=== PATIENT | male | born 1990 | race African-American/Black ===

== ENCOUNTER 2017-08-05 19:54 | Emergency (ER) | payer OTHER ==
[~2017-08-05] VITALS: Ht 180.3 cm; Wt 118.0 kg
[2017-08-05 19:57] VITALS: BP 144/181; PULSE 87; RESP 20; TEMP 97.9; O2SAT 100
[2017-08-05 21:28] VITALS: BP 145/79; PULSE 64; RESP 18; O2SAT 98
[2017-08-05] MEDS ORDERED: BENZ100 PO (21:30)
[2017-08-05] MEDS ORDERED: AZIT250T3 PO (21:30)
[2017-08-05] MEDS ORDERED: OSEL75 PO (21:30)
--- NOTE | 2017-08-05 21:31 | PD ---
HPI Chief Complaint: Cold / Flu Symptoms Time Seen by Provider: 21:14 Travel History International Travel<30 days: No Contact w/Intl Traveler<30days: No Traveled to known affect area: No History of Present Illness HPI 26 yo M c/o cough x two weeks. Mucinex and NyQuil have not been helpful. Positive chills. He denies fever. He reports diarrhea for the past couple days. Myalgias the legs reported. No vomiting. No chest pain. It has been hard to work due to the frequent coughing. He has tried an albuterol inhaler for the coughing which seems to help for a few minutes and the cough returns. PFSH Past Medical History Medical History: Denies Significant Hx Tetanus Vaccination: < 5 Years Past Surgical History Appendectomy: Yes Genitourinary Surgery: Yes Social History Alcohol Use: No Tobacco Use: Yes Substance Use: No Allergies-Medications (Allergen,Severity, Reaction): Coded Allergies: No Known Allergies (Unverified , 08/05/17) Reported Meds & Prescriptions Reported Meds & Active Scripts Active No Active Prescriptions or Reported Medications Review of Systems Except as stated in HPI: all other systems reviewed are Neg General / Constitutional: Positive: Chills, No: Fever Respiratory: Positive: Cough Physical Exam Narrative GENERAL: 26 yo M, plesant, NAD SKIN: Warm and dry. HEAD: Atraumatic. Normocephalic. EYES: Pupils equal and round. No scleral icterus. No injection or drainage. ENT: No nasal bleeding or discharge. Mucous membranes pink and moist. NECK: Trachea midline. No JVD. CARDIOVASCULAR: Regular rate and rhythm. RESPIRATORY: The lungs are clear. The patient speaking full sentences. Occasional cough is observed. GASTROINTESTINAL: Abdomen soft, non-tender, nondistended. Hepatic and splenic margins not palpable. MUSCULOSKELETAL: Extremities without clubbing, cyanosis, or edema. No obvious deformities. NEUROLOGICAL: Awake and alert. No obvious cranial nerve deficits. Motor grossly within normal limits. Five out of 5 muscle strength in the arms and legs. Normal speech. PSYCHIATRIC: Appropriate mood and affect; insight and judgment normal. Data Data Last Documented VS Vital Signs Date Time Temp Pulse Resp B/P (MAP) Pulse Ox O2 Delivery O2 Flow Rate FiO2 08/05/17 21:14 20 08/05/17 19:57 97.9 87 144/181 (169) 100 Room Air VS erviewed MDM Medical Decision Making Medical Screen Exam Complete: Yes Emergency Medical Condition: Yes Medical Record Reviewed: Yes Differential Diagnosis influenza, pna, non-specific viral syndrome Narrative Course scripts as below presentation likely atypical pna potential influenza return precautions discussed Diagnosis Primary Impression: URI (upper respiratory infection) Qualified Codes: J06.9 - Acute upper respiratory infection, unspecified Additional Impression: Diarrhea Qualified Codes: R19.7 - Diarrhea, unspecified Med/Other Pt SpecificInfo: Prescription(s) given Scripts Oseltamivir (Tamiflu) 75 Mg Cap 75 MG PO BID for Mgmt Viral Infection for 5 Days, #10 CAP 0 Refills Prov: Chip Pak MD 08/05/17 Benzonatate (Tessalon Perles) 100 Mg Cap 200 MG PO TID Y for COUGH, #15 CAP 0 Refills Prov: Chip Pak MD 08/05/17 Azithromycin (Azithromycin) 250 Mg Tab 250 MG PO DIRECTED for Infection, #6 TAB 0 Refills Take 2 tabs (500 mg) on day 1 then 1 tab daily x 4 days. Prov: Chip Pak MD 08/05/17 Disposition: 01 DISCHARGE HOME Condition: Stable Chip Pak MD Aug 05, 2017 21:31
[2017-08-05] MEDS ORDERED: DEXAMETHASONE SOD PHOS 4 MG/ML VIAL IM ONE (21:45)
== END 2017-08-05 22:02 | disposition home or self-care (01) ==
LOC: NEPD 19:54
DX: J06.9 Acute upper respiratory infection, unspecified (principal); R19.7 Diarrhea, unspecified; M79.1 Myalgia; Z72.0 Tobacco use
CPT/HCPCS: 96372; 99284; J1100

== ENCOUNTER 2017-10-24 05:04 | Emergency (ER) | payer OTHER ==
[~2017-10-24] VITALS: Ht 180.3 cm; Wt 130.0 kg
[~2017-10-24 05:04] MED LIST: AZIT250T3 PO; BENZ100 PO; OSEL75 PO
[2017-10-24 05:09] VITALS: BP 154/83; PULSE 72; RESP 22; TEMP 97.3; O2SAT 100
[2017-10-24] MEDS ORDERED: SODIUM CHLOR 0.9% 1000 ML INJ 1,000 ML IV SCH (05:13)
[2017-10-24] MEDS ORDERED: LIDOCAINE VISCOUS 2% SOLN 15 ML UDC PO ONE (05:15)
[2017-10-24] MEDS ORDERED: KETOROLAC TROMETHAMINE 30 MG/ML (IVP) VIAL IVP ONE (05:15)
[2017-10-24] MEDS ORDERED: FAMOTIDINE 20 MG/2 ML VIAL IV PUSH ONE (05:15)
[2017-10-24] MEDS ORDERED: ONDANSETRON HCL 4 MG/2 ML VIAL IVP ONE (05:15)
[2017-10-24] MEDS ORDERED: SODIUM CHLORIDE 0.9% FLUSH 10 ML FLUSH IV FLUSH PRN (05:15)
[2017-10-24] MEDS ORDERED: MORPHINE SULFATE 4 MG/ML INJ IV PUSH ONE (05:15)
[2017-10-24] MEDS ORDERED: ALUMINUM/MAGNESIUM/SIMETH 30 ML CUP PO ONE (05:15)
[2017-10-24 05:40] LABS: AUTOMATED NEUTROPHIL # 7.8 TH/MM3 (1.8-7.7); BASOPHIL % 0.3 % (0.0-2.0); EOSINOPHIL % 0.3 % (0.0-4.0); HEMATOCRIT 45.3 % (39.0-51.0); HEMOGLOBIN 15.1 GM/DL (13.0-17.0); LYMPH % 6.5 % (9.0-44.0); LYMPHOCYTE # 0.6 TH/MM3 (1.0-4.8); MEAN CORPUSCULAR HEMOGLOBIN 25.6 PG (27.0-34.0); MEAN CORPUSCULAR HGB CONC 33.3 % (32.0-36.0); MEAN PLATELET VOLUME 8.1 FL (7.0-11.0); MONO % 5.7 % (0.0-8.0); MONOCYTE # 0.5 TH/MM3 (0-0.9); NEUT % 87.2 % (16.0-70.0); PLATELET COUNT 264 TH/MM3 (150-450); RED BLOOD COUNT 5.88 MIL/MM3 (4.50-5.90); RED CELL DISTRIBUTION WIDTH 15.4 % (11.6-17.2)
[2017-10-24 05:54] VITALS: RESP 20
[2017-10-24 05:59] LABS: ALKALINE PHOSPHATASE 73 U/L (45-117); TOTAL BILIRUBIN ADULT 0.9 MG/DL (0.2-1.0); TOTAL PROTEIN 8.8 GM/DL (6.4-8.2)
[2017-10-24 06:06] LABS: ALBUMIN 4.1 GM/DL (3.4-5.0); ALT (GPT) 48 U/L (12-78); AST (GOT) 44 U/L (15-37); BICARBONATE 22.6 MEQ/L (21.0-32.0); BLOOD UREA NITROGEN 11 MG/DL (7-18); CALCIUM 9.1 MG/DL (8.5-10.1); CHLORIDE 100 MEQ/L (98-107); CREATININE 1.01 MG/DL (0.60-1.30); GLOMERULAR FILTRATION RATE 109 ML/MIN (>89); GLUCOSE,RANDOM 99 MG/DL (74-106); SODIUM (NA) 132 MEQ/L (136-145)
--- NOTE | 2017-10-24 06:39 | PD ---
HPI . Abdominal pain Chief Complaint: Abdominal Pain Time Seen by Provider: 05:13 Travel History International Travel<30 days: No Contact w/Intl Traveler<30days: No Traveled to known affect area: No History of Present Illness HPI 27-year-old male complains of abdominal pain and vomiting for 8 hours. Patient not offering further history secondary to the perceived level of his pain. PFSH Past Medical History Medical History: Unable to Obtain Past Surgical History Appendectomy: Yes Genitourinary Surgery: Yes Social History Alcohol Use: No Tobacco Use: Yes Substance Use: No Allergies-Medications (Allergen,Severity, Reaction): Coded Allergies: No Known Allergies (Unverified , 10/24/17) Reported Meds & Prescriptions Reported Meds & Active Scripts Active No Active Prescriptions or Reported Medications Narrative Medication Patient denied having allergies or taking medications at home Review of Systems ROS Limitations: Other: (Patient unable to answer questions secondary to the perceived level of his abdominal pain.) Gastrointestinal: Positive: Vomiting, Abdominal Pain Physical Exam Narrative GENERAL: Limited exam secondary to poor patient cooperation secondary to his level of discomfort. Vital signs afebrile normal and stable SKIN: Warm and dry. Color is normal no diaphoresis HEAD: Atraumatic. Normocephalic. EYES: Pupils equal and round. No scleral icterus. No injection or drainage. ENT: No nasal bleeding or discharge. Mucous membranes pink and moist. NECK: Trachea midline. No JVD. CARDIOVASCULAR: Regular rate and rhythm. RESPIRATORY: No accessory muscle use. Clear to auscultation. Breath sounds equal bilaterally. GASTROINTESTINAL: Unable to perform exam secondary to patient's degree of pain MUSCULOSKELETAL: Extremities without clubbing, cyanosis, or edema. No obvious deformities. NEUROLOGICAL: Awake and alert. No obvious deficit PSYCHIATRIC: Unable to perform exam secondary to poor patient compliance Data Data Last Documented VS Vital Signs Date Time Temp Pulse Resp B/P (MAP) Pulse Ox O2 Delivery O2 Flow Rate FiO2 10/24/17 06:37 20 10/24/17 05:54 10/24/17 05:09 97.3 72 100 Orders Orders Complete Blood Count With Diff (10/24/17 05:13) Comprehensive Metabolic Panel (10/24/17 05:13) Lipase (10/24/17 05:13) Urinalysis - C+S If Indicated (10/24/17 05:13) Ct Abd/Pel W/O Iv Contrast (10/24/17 05:13) Iv Access Insert/Monitor (10/24/17 05:13) Ecg Monitoring (10/24/17 05:13) Oximetry (10/24/17 05:13) Morphine Inj (Morphine Inj) (10/24/17 05:15) Ondansetron Inj (Zofran Inj) (10/24/17 05:15) Sodium Chlor 0.9% 1000 Ml Inj (Ns 1000 M (10/24/17 05:13) Sodium Chloride 0.9% Flush (Ns Flush) (10/24/17 05:15) Famotidine Inj (Pepcid Inj) (10/24/17 05:15) Ketorolac Inj (Toradol Inj) (10/24/17 05:15) Al-Mag Hy-Si 40-40-4 Mg/Ml Liq (Mag-Al P (10/24/17 05:15) Lidocaine 2% Viscous (Xylocaine 2% Visco (10/24/17 05:15) Dicyclomine Inj (Bentyl Inj) (10/24/17 07:00) Metoclopramide Inj (Reglan Inj) (10/24/17 07:00) Diphenhydramine Inj (Benadryl Inj) (10/24/17 07:00) Sodium Chlor 0.9% 1000 Ml Inj (Ns 1000 M (10/24/17 07:00) Labs Laboratory Tests Test 10/24/17 05:25 White Blood Count 9.0 TH/MM3 Red Blood Count 5.88 MIL/MM3 Hemoglobin 15.1 GM/DL Hematocrit 45.3 % Mean Corpuscular Volume 77.0 FL Mean Corpuscular Hemoglobin 25.6 PG Mean Corpuscular Hemoglobin Concent 33.3 % Red Cell Distribution Width 15.4 % Platelet Count 264 TH/MM3 Mean Platelet Volume 8.1 FL Neutrophils (%) (Auto) 87.2 % Lymphocytes (%) (Auto) 6.5 % Monocytes (%) (Auto) 5.7 % Eosinophils (%) (Auto) 0.3 % Basophils (%) (Auto) 0.3 % Neutrophils # (Auto) 7.8 TH/MM3 Lymphocytes # (Auto) 0.6 TH/MM3 Monocytes # (Auto) 0.5 TH/MM3 Eosinophils # (Auto) 0.0 TH/MM3 Basophils # (Auto) 0.0 TH/MM3 CBC Comment DIFF FINAL Differential Comment Blood Urea Nitrogen 11 MG/DL Creatinine 1.01 MG/DL Random Glucose 99 MG/DL Total Protein 8.8 GM/DL Albumin 4.1 GM/DL Calcium Level 9.1 MG/DL Alkaline Phosphatase 73 U/L Aspartate Amino Transf (AST/SGOT) 44 U/L Alanine Aminotransferase (ALT/SGPT) 48 U/L Total Bilirubin 0.9 MG/DL Sodium Level 132 MEQ/L Potassium Level 4.6 MEQ/L Chloride Level 100 MEQ/L Carbon Dioxide Level 22.6 MEQ/L Anion Gap 9 MEQ/L Estimat Glomerular Filtration Rate 109 ML/MIN Lipase 43 U/L MDM Medical Decision Making Medical Screen Exam Complete: Yes Emergency Medical Condition: Yes Medical Record Reviewed: Yes Differential Diagnosis Abdominal pain of uncertain etiology Narrative Course Patient awaiting studies, and CT abdomen pelvis Laboratory examinations reviewed, no significant abnormalities CT abdomen pelvis reviewed, no acute intra-abdominal abnormalities Patient had slight improvement in his complaints of pain with significant amount of medications ordered at presentation. Despite being more comfortable, patient still uncooperative with history. Patient had a second round of medications ordered including Bentyl IM, Reglan IV, and Benadryl IV. Patient will be written for discharge pending clinical reevaluation. Diagnosis Primary Impression: Abdominal pain Qualified Codes: R10.9 - Unspecified abdominal pain Patient Instructions: Abdominal Pain (ED), General Instructions Additional Instructions: Ultram 50 mg every 8 hours for pain. Follow-up with your doctor. Recommend follow-up with gastroenterology if symptoms persist. Return for worsening Scripts No Active Prescriptions or Reported Meds Disposition: 01 DISCHARGE HOME Condition: Stable Ryan Downey MD Oct 24, 2017 06:39
--- NOTE | 2017-10-24 06:45 | RADRPT ---
EXAM DATE/TIME: 10/24/2017 06:34 [facility] COMPARISON: No previous studies available for comparison. INDICATIONS : Mid abdominal pain with nausea and vomiting. ORAL CONTRAST: No oral contrast ingested. RADIATION DOSE: 19.44 CTDIvol (mGy) MEDICAL HISTORY : None SURGICAL HISTORY : Appendectomy. ENCOUNTER: Initial ACUITY: 1 day PAIN SCALE: 10/10 LOCATION: Abdomen. TECHNIQUE: Volumetric scanning of the abdomen and pelvis was performed. Using automated exposure control and ad justment of the mA and/or kV according to patient size, radiation dose was kept as low as reasonably achievable to obtain optimal diagnostic quality images. DICOM format image data is available electro nically for review and comparison. FINDINGS: Lung bases are clear. Liver, gallbladder, pancreas, spleen, adrenals, kidneys are unremarkable. Patie nt is status post appendectomy. Urinary bladder, prostate, small bowel and large bowel are unremarkab le. Stomach is normal in appearance. No adenopathy or aneurysm. The osseous structures are intact. CONCLUSION: Normal examination. Nathaniel Bartholomew MD on October 24, 2017 at 6:42 Board Certified Radiologist. This report was verified electronically.
[2017-10-24 07:00] VITALS: BP 137/66; PULSE 69; RESP 25; O2SAT 100
[2017-10-24] MEDS ORDERED: diphenhydrAMINE HCL 50 MG/ML VIAL IV PUSH ONE (07:00)
[2017-10-24] MEDS ORDERED: SODIUM CHLOR 0.9% 1000 ML INJ 1,000 ML IV ONE (07:00)
[2017-10-24] MEDS ORDERED: METOCLOPRAMIDE HCL 10 MG/2 ML VIAL IV PUSH ONE (07:00)
[2017-10-24] MEDS ORDERED: DICYCLOMINE HCL 20 MG/2 ML VIAL IM ONE (07:00)
[2017-10-24 08:22] LABS: BILIRUBIN, URINE NEG (NEG); BLOOD, URINE TRACE (NEG); GLUCOSE,URINE NEG (NEG); KETONE, URINE 80 mg/dL (NEG); NITRITE,URINE NEG (NEG); PH, URINE 6.5 (5.0-8.5); URINE COLOR LIGHT-YELLOW (YELLW/STRAW); URINE LEUKOCYTE ESTERASE NEG (NEG)
[2017-10-24] MEDS ORDERED: TRAM50TA PO (09:08)
[2017-10-24 09:12] VITALS: BP 145/80
[2017-10-25] MEDS ORDERED: DICY10 PO (20:31)
[2017-10-25] MEDS ORDERED: ZOFR4TAB3 SL (20:31)
== END 2017-10-24 09:15 | disposition home or self-care (01) ==
LOC: NEPC 05:04
DX: R10.9 Unspecified abdominal pain (principal); R11.10 Vomiting, unspecified; Z72.0 Tobacco use
CPT/HCPCS: 74176; 80053; 81001; 83690; 85025; 96361; 96372; 96374; 96375; 99284; J0500; J1200; J1885; J2270; J2405; J2765; J7030

== ENCOUNTER 2017-10-25 15:44 | Emergency (ER) | payer OTHER ==
[~2017-10-25 15:44] MED LIST changes: -AZIT250T3 PO; -BENZ100 PO; -OSEL75 PO; +TRAM50TA PO
[2017-10-25] MEDS ORDERED: SODIUM CHLOR 0.9% 1000 ML INJ 1,000 ML IV SCH (16:19)
[2017-10-25] MEDS ORDERED: PROCHLORPERAZINE INJ 10 MG/2 ML VIAL IV PUSH ONE (16:30)
[2017-10-25] MEDS ORDERED: SODIUM CHLORIDE 0.9% FLUSH 10 ML FLUSH IV FLUSH PRN (16:30)
[2017-10-25] MEDS ORDERED: KETOROLAC TROMETHAMINE 30 MG/ML (IVP) VIAL IVP ONE (16:30)
[2017-10-25] MEDS ORDERED: LIDOCAINE VISCOUS 2% SOLN 15 ML UDC PO ONE (16:30)
[2017-10-25] MEDS ORDERED: diphenhydrAMINE HCL 50 MG/ML VIAL IV PUSH ONE (16:30)
[2017-10-25] MEDS ORDERED: FAMOTIDINE 20 MG/2 ML VIAL IV PUSH ONE (16:30)
[2017-10-25] MEDS ORDERED: DICYCLOMINE HCL 20 MG/2 ML VIAL IM ONE (16:30)
[2017-10-25] MEDS ORDERED: ALUMINUM/MAGNESIUM/SIMETH 30 ML CUP PO ONE (16:30)
[2017-10-25 17:14] LABS: AUTOMATED NEUTROPHIL # 4.6 TH/MM3 (1.8-7.7); BASOPHIL % 0.4 % (0.0-2.0); EOSINOPHIL # 0.1 TH/MM3 (0-0.4); EOSINOPHIL % 0.7 % (0.0-4.0); HEMATOCRIT 45.5 % (39.0-51.0); HEMOGLOBIN 15.6 GM/DL (13.0-17.0); LYMPH % 27.5 % (9.0-44.0); LYMPHOCYTE # 2.3 TH/MM3 (1.0-4.8); MEAN CELL VOLUME 76.8 FL (80.0-100.0); MEAN CORPUSCULAR HEMOGLOBIN 26.4 PG (27.0-34.0); MEAN CORPUSCULAR HGB CONC 34.3 % (32.0-36.0); MEAN PLATELET VOLUME 8.5 FL (7.0-11.0); MONO % 15.6 % (0.0-8.0); MONOCYTE # 1.3 TH/MM3 (0-0.9); NEUT % 55.8 % (16.0-70.0); PLATELET COUNT 263 TH/MM3 (150-450); RED BLOOD COUNT 5.92 MIL/MM3 (4.50-5.90); RED CELL DISTRIBUTION WIDTH 15.2 % (11.6-17.2); WHITE BLOOD COUNT 8.3 TH/MM3 (4.0-11.0)
[2017-10-25 17:26] LABS: ALBUMIN 3.8 GM/DL (3.4-5.0); ALKALINE PHOSPHATASE 68 U/L (45-117); ALT (GPT) 53 U/L (12-78); AST (GOT) 35 U/L (15-37); BICARBONATE 22.6 MEQ/L (21.0-32.0); BLOOD UREA NITROGEN 14 MG/DL (7-18); CALCIUM 8.6 MG/DL (8.5-10.1); CHLORIDE 101 MEQ/L (98-107); CREATININE 1.41 MG/DL (0.60-1.30); GLOMERULAR FILTRATION RATE 74 ML/MIN (>89); GLUCOSE,RANDOM 87 MG/DL (74-106); SODIUM (NA) 136 MEQ/L (136-145); TOTAL BILIRUBIN ADULT 0.9 MG/DL (0.2-1.0)
[2017-10-25 17:38] VITALS: O2SAT 97
[2017-10-25 17:45] LABS: BILIRUBIN, URINE NEG (NEG); BLOOD, URINE TRACE (NEG); GLUCOSE,URINE NEG (NEG); KETONE, URINE 40 mg/dL (NEG); MUCUS URINE FEW /lpf (OCC); NITRITE,URINE NEG (NEG); PH, URINE 6.5 (5.0-8.5); URINE COLOR YELLOW (YELLW/STRAW); URINE LEUKOCYTE ESTERASE TRACE (NEG)
--- NOTE | 2017-10-25 18:48 | PD ---
HPI Chief Complaint: Abdominal Pain Time Seen by Provider: 16:12 Travel History International Travel<30 days: No Contact w/Intl Traveler<30days: No Traveled to known affect area: No History of Present Illness HPI 27-year-old male complains of generalized abdominal pain. Nausea and vomiting is also reported. The location is epigastric predominantly however generalized as well. Patient was seen and evaluated here yesterday with blood work and a CT scan which were unremarkable. He reports vomiting today and therefore arriving to the ER for further evaluation. History somewhat limited due to patient distress. PFSH Past Surgical History Appendectomy: Yes Genitourinary Surgery: Yes Social History Alcohol Use: No Tobacco Use: Yes Substance Use: No Allergies-Medications (Allergen,Severity, Reaction): Coded Allergies: No Known Allergies (Unverified , 10/25/17) Reported Meds & Prescriptions Reported Meds & Active Scripts Active Tramadol (Tramadol HCl) 50 Mg Tab 50 Mg PO Q6H PRN Review of Systems ROS Limitations: Clinical Condition Physical Exam Narrative GENERAL:27 yo Male moderate distress secondary to pain and/or nausea and/or anxiety Vital Signs Date Time Temp Pulse Resp B/P (MAP) Pulse Ox O2 Delivery O2 Flow Rate FiO2 10/25/17 17:38 97 Room Air 10/25/17 16:04 18 SKIN: Warm and dry. HEAD: Atraumatic. Normocephalic. EYES: Pupils equal and round. No scleral icterus. No injection or drainage. ENT: No nasal bleeding or discharge. Mucous membranes pink and moist. NECK: Trachea midline. No JVD. CARDIOVASCULAR: Regular rate and rhythm. RESPIRATORY: No accessory muscle use. Clear to auscultation. Breath sounds equal bilaterally. GASTROINTESTINAL: Abdomen soft, non-tender, nondistended. Hepatic and splenic margins not palpable. MUSCULOSKELETAL: Extremities without clubbing, cyanosis, or edema. No obvious deformities. NEUROLOGICAL: Awake and alert. No obvious cranial nerve deficits. Motor grossly within normal limits. Five out of 5 muscle strength in the arms and legs. Normal speech. PSYCHIATRIC: Appropriate mood and affect; insight and judgment normal. Data Data Last Documented VS Vital Signs Date Time Temp Pulse Resp B/P (MAP) Pulse Ox O2 Delivery O2 Flow Rate FiO2 10/25/17 17:38 97 Room Air 10/25/17 16:04 18 Orders Orders Complete Blood Count With Diff (10/25/17 16:19) Comprehensive Metabolic Panel (10/25/17 16:19) Lipase (10/25/17 16:19) Lactic Acid (10/25/17 16:19) Urinalysis - C+S If Indicated (10/25/17 16:19) Iv Access Insert/Monitor (10/25/17 16:19) Ecg Monitoring (10/25/17 16:19) Oximetry (10/25/17 16:19) Sodium Chlor 0.9% 1000 Ml Inj (Ns 1000 M (10/25/17 16:19) Sodium Chloride 0.9% Flush (Ns Flush) (10/25/17 16:30) Famotidine Inj (Pepcid Inj) (10/25/17 16:30) Dicyclomine Inj (Bentyl Inj) (10/25/17 16:30) Ketorolac Inj (Toradol Inj) (10/25/17 16:30) Al-Mag Hy-Si 40-40-4 Mg/Ml Liq (Mag-Al P (10/25/17 16:30) Lidocaine 2% Viscous (Xylocaine 2% Visco (10/25/17 16:30) Prochlorperazine Inj (Compazine Inj) (10/25/17 16:30) Diphenhydramine Inj (Benadryl Inj) (10/25/17 16:30) Drug Screen, Random Urine (10/25/17 17:16) Alcohol (Ethanol) (10/25/17 17:16) Ct Abd/Pel W Iv Contrast(Rout) (10/25/17 18:12) Labs Laboratory Tests Test 10/25/17 16:35 10/25/17 17:15 White Blood Count 8.3 TH/MM3 Red Blood Count 5.92 MIL/MM3 Hemoglobin 15.6 GM/DL Hematocrit 45.5 % Mean Corpuscular Volume 76.8 FL Mean Corpuscular Hemoglobin 26.4 PG Mean Corpuscular Hemoglobin Concent 34.3 % Red Cell Distribution Width 15.2 % Platelet Count 263 TH/MM3 Mean Platelet Volume 8.5 FL Neutrophils (%) (Auto) 55.8 % Lymphocytes (%) (Auto) 27.5 % Monocytes (%) (Auto) 15.6 % Eosinophils (%) (Auto) 0.7 % Basophils (%) (Auto) 0.4 % Neutrophils # (Auto) 4.6 TH/MM3 Lymphocytes # (Auto) 2.3 TH/MM3 Monocytes # (Auto) 1.3 TH/MM3 Eosinophils # (Auto) 0.1 TH/MM3 Basophils # (Auto) 0.0 TH/MM3 CBC Comment DIFF FINAL Differential Comment Blood Urea Nitrogen 14 MG/DL Creatinine 1.41 MG/DL Random Glucose 87 MG/DL Total Protein 8.0 GM/DL Albumin 3.8 GM/DL Calcium Level 8.6 MG/DL Alkaline Phosphatase 68 U/L Aspartate Amino Transf (AST/SGOT) 35 U/L Alanine Aminotransferase (ALT/SGPT) 53 U/L Total Bilirubin 0.9 MG/DL Sodium Level 136 MEQ/L Potassium Level 3.5 MEQ/L Chloride Level 101 MEQ/L Carbon Dioxide Level 22.6 MEQ/L Anion Gap 12 MEQ/L Estimat Glomerular Filtration Rate 74 ML/MIN Lactic Acid Level 3.4 mmol/L Lipase 61 U/L Ethyl Alcohol Level LESS THAN 3 MG/DL Urine Color YELLOW Urine Turbidity CLEAR Urine pH 6.5 Urine Specific [place] 1.028 Urine Protein 30 mg/dL Urine Glucose (UA) NEG mg/dL Urine Ketones 40 mg/dL Urine Occult Blood TRACE Urine Nitrite NEG Urine Bilirubin NEG Urine Urobilinogen 2.0 MG/DL Urine Leukocyte Esterase TRACE Urine RBC 1 /hpf Urine WBC 6 /hpf Urine Mucus FEW /lpf Microscopic Urinalysis Comment CULT NOT INDICATED Urine Opiates Screen NEG Urine Barbiturates Screen NEG Urine Amphetamines Screen NEG Urine Benzodiazepines Screen NEG Urine Cocaine Screen NEG Urine Cannabinoids Screen POS MDM Medical Decision Making Medical Screen Exam Complete: Yes Emergency Medical Condition: Yes Medical Record Reviewed: Yes Differential Diagnosis Gastritis, pancreatitis, appendicitis, acute cholecystitis, ascending cholangitis, AAA, perforated viscous, mesenteric ischemia, hepatitis, cystitis, hydronephrosis/hydroureter/nephroureter calculus, mesenteric adenitis, biliary colic Narrative Course CBC & BMP Diagram 10/25/17 16:35 Total Protein 8.0 #, Albumin 3.8, Calcium Level 8.6, Alkaline Phosphatase 68, Aspartate Amino Transf (AST/SGOT) 35, Alanine Aminotransferase (ALT/SGPT) 53, Total Bilirubin 0.9 Lactic acid 3.4 There is mild decrease in renal function Given the elevated lactic acid and a mild decrease in renal function and a CT scan will not be repeated. The patient has been in moderate distress at least at the ER stay. He has received Compazine Benadryl Protonix a GI cocktail and IV fluids. Persistent discomfort is observed. Toradol also given. Oncoming provider follow up CT and reassess patient. No vomiting has been observed in the ER. Chip Pak MD Oct 25, 2017 18:48
[2017-10-25 18:50] VITALS: BP 152/80; PULSE 65; RESP 19; TEMP 98.3; O2SAT 100
[2017-10-25] MEDS ORDERED: IOHEXOL 350 MG/ML 10 ML VIAL (for RAD DIAG) IVCONTRAST ONE (19:20)
[2017-10-25 19:26] VITALS: BP 151/74; PULSE 65; RESP 18; O2SAT 99
--- NOTE | 2017-10-25 19:36 | RADRPT ---
EXAM DATE/TIME: 10/25/2017 19:16 [facility] COMPARISON: No previous studies available for comparison. INDICATIONS : Diffuse abdominal pain with vomiting. IV CONTRAST: 100 cc Omnipaque 350 (iohexol) IV ORAL CONTRAST: No oral contrast ingested. RADIATION DOSE: 11.16 CTDIvol (mGy) MEDICAL HISTORY : None SURGICAL HISTORY : Appendectomy. ENCOUNTER: Initial ACUITY: 2 days PAIN SCALE: 10/10 LOCATION: Abdomen. TECHNIQUE: Volumetric scanning of the abdomen and pelvis was performed. Using automated exposure control and ad justment of the mA and/or kV according to patient size, radiation dose was kept as low as reasonably achievable to obtain optimal diagnostic quality images. DICOM format image data is available electro nically for review and comparison. FINDINGS: LOWER LUNGS: The visualized lower lungs are clear. LIVER: Homogeneous density without lesion. There is no dilation of the biliary tree. No calcified gallston es. SPLEEN: Normal size without lesion. PANCREAS: Within normal limits. KIDNEYS: Normal in size and shape. There is no mass, stone or hydronephrosis. ADRENAL GLANDS: Within normal limits. VASCULAR: There is no aortic aneurysm. BOWEL/MESENTERY: The stomach, small bowel, and colon demonstrate no acute abnormality. There is no free intraperitone al air or fluid. ABDOMINAL WALL: Within normal limits. RETROPERITONEUM: There is no lymphadenopathy. BLADDER: No wall thickening or mass. REPRODUCTIVE: Within normal limits. INGUINAL: There is no lymphadenopathy or hernia. MUSCULOSKELETAL: Within normal limits for patient age. CONCLUSION: 1. No acute findings on abdomen and pelvic CT. Florian Hernandez MD on October 25, 2017 at 19:32 Board Certified Radiologist. This report was verified electronically.
[2017-10-25] MEDS ORDERED: ZOFR4TAB3 SL (20:31)
[2017-10-25] MEDS ORDERED: DICY10 PO (20:31)
--- NOTE | 2017-10-25 20:31 | PD ---
Physical Exam Narrative GENERAL: SKIN: Warm and dry. HEAD: Atraumatic. Normocephalic. EYES: Pupils equal and round. No scleral icterus. No injection or drainage. ENT: No nasal bleeding or discharge. Mucous membranes pink and moist. NECK: Trachea midline. No JVD. CARDIOVASCULAR: Regular rate and rhythm. RESPIRATORY: No accessory muscle use. Clear to auscultation. Breath sounds equal bilaterally. GASTROINTESTINAL: Abdomen soft, non-tender, nondistended. MUSCULOSKELETAL: Extremities without clubbing, cyanosis, or edema. No obvious deformities. NEUROLOGICAL: Awake and alert. No obvious cranial nerve deficits. Motor grossly within normal limits. Five out of 5 muscle strength in the arms and legs. Normal speech. PSYCHIATRIC: Appropriate mood and affect; insight and judgment normal. Data Data Last Documented VS Vital Signs Date Time Temp Pulse Resp B/P (MAP) Pulse Ox O2 Delivery O2 Flow Rate FiO2 10/25/17 20:26 10/25/17 19:26 65 18 99 Room Air 10/25/17 18:50 98.3 Orders Orders Complete Blood Count With Diff (10/25/17 16:19) Comprehensive Metabolic Panel (10/25/17 16:19) Lipase (10/25/17 16:19) Lactic Acid (10/25/17 16:19) Urinalysis - C+S If Indicated (10/25/17 16:19) Iv Access Insert/Monitor (10/25/17 16:19) Ecg Monitoring (10/25/17 16:19) Oximetry (10/25/17 16:19) Sodium Chlor 0.9% 1000 Ml Inj (Ns 1000 M (10/25/17 16:19) Sodium Chloride 0.9% Flush (Ns Flush) (10/25/17 16:30) Famotidine Inj (Pepcid Inj) (10/25/17 16:30) Dicyclomine Inj (Bentyl Inj) (10/25/17 16:30) Ketorolac Inj (Toradol Inj) (10/25/17 16:30) Al-Mag Hy-Si 40-40-4 Mg/Ml Liq (Mag-Al P (10/25/17 16:30) Lidocaine 2% Viscous (Xylocaine 2% Visco (10/25/17 16:30) Prochlorperazine Inj (Compazine Inj) (10/25/17 16:30) Diphenhydramine Inj (Benadryl Inj) (10/25/17 16:30) Drug Screen, Random Urine (10/25/17 17:16) Alcohol (Ethanol) (10/25/17 17:16) Ct Abd/Pel W Iv Contrast(Rout) (10/25/17 18:12) Lactic Acid Sepsis Protocol (10/25/17 19:02) Iohexol 350 Inj (Omnipaque 350 Inj) (10/25/17 19:20) Labs Laboratory Tests Test 10/25/17 16:35 10/25/17 17:15 10/25/17 19:05 White Blood Count 8.3 TH/MM3 Red Blood Count 5.92 MIL/MM3 Hemoglobin 15.6 GM/DL Hematocrit 45.5 % Mean Corpuscular Volume 76.8 FL Mean Corpuscular Hemoglobin 26.4 PG Mean Corpuscular Hemoglobin Concent 34.3 % Red Cell Distribution Width 15.2 % Platelet Count 263 TH/MM3 Mean Platelet Volume 8.5 FL Neutrophils (%) (Auto) 55.8 % Lymphocytes (%) (Auto) 27.5 % Monocytes (%) (Auto) 15.6 % Eosinophils (%) (Auto) 0.7 % Basophils (%) (Auto) 0.4 % Neutrophils # (Auto) 4.6 TH/MM3 Lymphocytes # (Auto) 2.3 TH/MM3 Monocytes # (Auto) 1.3 TH/MM3 Eosinophils # (Auto) 0.1 TH/MM3 Basophils # (Auto) 0.0 TH/MM3 CBC Comment DIFF FINAL Differential Comment Blood Urea Nitrogen 14 MG/DL Creatinine 1.41 MG/DL Random Glucose 87 MG/DL Total Protein 8.0 GM/DL Albumin 3.8 GM/DL Calcium Level 8.6 MG/DL Alkaline Phosphatase 68 U/L Aspartate Amino Transf (AST/SGOT) 35 U/L Alanine Aminotransferase (ALT/SGPT) 53 U/L Total Bilirubin 0.9 MG/DL Sodium Level 136 MEQ/L Potassium Level 3.5 MEQ/L Chloride Level 101 MEQ/L Carbon Dioxide Level 22.6 MEQ/L Anion Gap 12 MEQ/L Estimat Glomerular Filtration Rate 74 ML/MIN Lactic Acid Level 3.4 mmol/L 1.6 mmol/L Lipase 61 U/L Ethyl Alcohol Level LESS THAN 3 MG/DL Urine Color YELLOW Urine Turbidity CLEAR Urine pH 6.5 Urine Specific [place] 1.028 Urine Protein 30 mg/dL Urine Glucose (UA) NEG mg/dL Urine Ketones 40 mg/dL Urine Occult Blood TRACE Urine Nitrite NEG Urine Bilirubin NEG Urine Urobilinogen 2.0 MG/DL Urine Leukocyte Esterase TRACE Urine RBC 1 /hpf Urine WBC 6 /hpf Urine Mucus FEW /lpf Microscopic Urinalysis Comment CULT NOT INDICATED Urine Opiates Screen NEG Urine Barbiturates Screen NEG Urine Amphetamines Screen NEG Urine Benzodiazepines Screen NEG Urine Cocaine Screen NEG Urine Cannabinoids Screen POS MDM Medical Record Reviewed: Yes Supervised Visit with NAREN: No Narrative Course Patient's CBC does not show any leukocytosis no anemia and no abnormalities of the platelet count. There is also no left shift. Complete metabolic profile shows no electrolyte abnormalities patient's creatinine and GFR still within normal limits though slightly lower than they were before this may be secondary to lab error. LFTs are within normal limits lipase is negative patient's first lactic acid read at 3.4 patient did not appear toxic nor septic at any point and so we repeated a another lactic acid which returned at 1.6. Tox screen was positive for marijuana only. Urinalysis was negative for any evidence of UTI. Diagnosis Primary Impression: Abdominal pain not otherwise specified Patient Instructions: General Instructions Departure Forms: Tests/Procedures Scripts Dicyclomine (Bentyl) 10 Mg Cap 10 MG PO TID Y for Bowel Management, #15 CAP 0 Refills Prov: Davon Plaza MD 10/25/17 Ondansetron Odt (Zofran Odt) 4 Mg Tab 4 MG SL Q6HR Y for Nausea/Vomiting, #12 TAB 0 Refills Prov: Davon Plaza MD 10/25/17 Disposition: 01 DISCHARGE HOME Condition: Stable Davon Plaza MD Oct 25, 2017 20:31
== END 2017-10-25 20:36 | disposition home or self-care (01) ==
LOC: NEPE 15:44
DX: R10.84 Generalized abdominal pain (principal); R11.2 Nausea with vomiting, unspecified; Z72.0 Tobacco use
CPT/HCPCS: 74177; 80053; 80307; 81001; 83605; 83690; 85025; 96361; 96372; 96374; 96375; 99284; J0500; J0780; J1200; J1885; J7030; Q9967

== ENCOUNTER 2017-12-10 12:33 | Emergency (ER) | payer OTHER ==
[~2017-12-10] VITALS: Ht 180.3 cm; Wt 134.1 kg
[~2017-12-10 12:33] MED LIST changes: +DICY10 PO; +ZOFR4TAB3 SL
[2017-12-10] MEDS ORDERED: IOHEXOL 350 MG/ML 10 ML VIAL (for RAD DIAG) IVCONTRAST ONE (12:34)
[2017-12-10 12:59] VITALS: BP 199/103; PULSE 82; RESP 20; TEMP 98.8; O2SAT 100
[2017-12-10 13:36] VITALS: BP 153/96; PULSE 63; RESP 18; TEMP 98.7; O2SAT 98
[2017-12-10] MEDS ORDERED: SODIUM CHLORIDE 0.9% FLUSH 10 ML FLUSH IV FLUSH PRN (13:45)
[2017-12-10] MEDS ORDERED: MORPHINE SULFATE 4 MG/ML INJ IV PUSH ONE (13:45)
[2017-12-10] MEDS ORDERED: DICYCLOMINE HCL 20 MG/2 ML VIAL IM ONE (13:45)
[2017-12-10] MEDS ORDERED: FAMOTIDINE 20 MG/2 ML VIAL IV PUSH ONE (13:45)
[2017-12-10] MEDS ORDERED: ONDANSETRON HCL 4 MG/2 ML VIAL IVP ONE (13:45)
[2017-12-10 13:59] VITALS: BP 153/96; PULSE 63; RESP 18; TEMP 98.7; O2SAT 98
[2017-12-10] MEDS: SODIUM CHLOR 0.9% 1000 ML INJ 1,000 ML IV SCH ×2 (14:14→15:29)
--- NOTE | 2017-12-10 14:15 | PD ---
HPI Chief Complaint: Abdominal Pain Time Seen by Provider: 13:30 Travel History International Travel<30 days: No Contact w/Intl Traveler<30days: No Traveled to known affect area: No History of Present Illness HPI 27-year-old -[place] male presents emergency department with acute onset nausea and vomiting since Sunday. Patient states he ate at [employer] and subsequently developed nausea, abdominal pain, and vomiting since that time. Patient states he was seen at [facility] Nic evening and discharged home, with Tejinder and Alana. Patient states he continues to have nausea and vomiting. He denies diarrhea. He denies significant fever. He states he is unable to keep anything down and has decreased urine output. Patient went to the [place] but they referred him here for further evaluation and treatment. Patient states he does not take any regular medications. He has no known drug allergies. [facility] Past Medical History Anxiety: Yes Depression: Yes Musculoskeletal: Yes Past Surgical History Appendectomy: Yes Genitourinary Surgery: Yes Social History Alcohol Use: No Tobacco Use: No Substance Use: No Allergies-Medications (Allergen,Severity, Reaction): Coded Allergies: No Known Allergies (Unverified , 12/10/17) Reported Meds & Prescriptions Reported Meds & Active Scripts Active No Active Prescriptions or Reported Medications Review of Systems Except as stated in HPI: all other systems reviewed are Neg General / Constitutional: Positive: Chills, No: Fever Eyes: No: Visual changes HENT: No: Headaches Cardiovascular: No: Chest Pain or Discomfort Respiratory: No: Shortness of Breath Gastrointestinal: Positive: Nausea, Vomiting, Abdominal Pain, Loss of Appetite , No: Diarrhea, Hematemesis, Hematochezia, Constipation, Changes in Bowel Habits , Indigestion, Dysphagia Genitourinary: Positive: Decreased Urinary Output, No: Urgency, Frequency, Dysuria Musculoskeletal: No: Pain Skin: No Rash Neurologic: No: Weakness Psychiatric: No: Depression Endocrine: No: Polydipsia Hematologic/Lymphatic: No: Easy Bruising Physical Exam Narrative GENERAL: Patient appears in obvious distress. SKIN: Warm and dry. Somewhat decreased pallor. Normal turgor. HEAD: Atraumatic. Normocephalic. EYES: Pupils equal and round. No scleral icterus. No injection or drainage. ENT: No nasal bleeding or discharge. Mucous membranes pink and dry. Pharynx is clear. Airways patent NECK: Trachea midline. Supple nontender CARDIOVASCULAR: Regular rate and rhythm. RESPIRATORY: No accessory muscle use. Clear to auscultation. Breath sounds equal bilaterally. GASTROINTESTINAL: Abdomen soft, mild to moderate diffuse upper abdominal tenderness, nondistended. No point tenderness or rebound. Bowel sounds present in all quadrants. No CVA tenderness. Hepatic and splenic margins not palpable. MUSCULOSKELETAL: Extremities without clubbing, cyanosis, or edema. No obvious deformities. NEUROLOGICAL: Awake and alert. No obvious cranial nerve deficits. Motor grossly within normal limits. Five out of 5 muscle strength in the arms and legs. Normal speech. PSYCHIATRIC: Appropriate mood and affect; insight and judgment normal. Data Data Last Documented VS Vital Signs Date Time Temp Pulse Resp B/P (MAP) Pulse Ox O2 Delivery O2 Flow Rate FiO2 12/10/17 13:59 98.7 63 18 153/96 (115) 98 Room Air Orders Orders Complete Blood Count With Diff (12/10/17 13:01) Comprehensive Metabolic Panel (12/10/17 13:01) Lipase (12/10/17 13:01) Urinalysis - C+S If Indicated (12/10/17 13:01) Blood Glucose (12/10/17 13:37) Ct Abd/Pel W Iv Contrast(Rout) (12/10/17 13:40) Iv Access Insert/Monitor (12/10/17 13:40) Ecg Monitoring (12/10/17 13:40) Oximetry (12/10/17 13:40) Morphine Inj (Morphine Inj) (12/10/17 13:45) Ondansetron Inj (Zofran Inj) (12/10/17 13:45) Sodium Chlor 0.9% 1000 Ml Inj (Ns 1000 M (12/10/17 13:40) Sodium Chloride 0.9% Flush (Ns Flush) (12/10/17 13:45) Famotidine Inj (Pepcid Inj) (12/10/17 13:45) Dicyclomine Inj (Bentyl Inj) (12/10/17 13:45) Lactic Acid (12/10/17 13:42) Promethazine Inj (Phenergan Inj) (12/10/17 15:15) Ketorolac Inj (Toradol Inj) (12/10/17 15:15) Iohexol 350 Inj (Omnipaque 350 Inj) (12/10/17 12:34) Labs Laboratory Tests Test 12/10/17 14:05 12/10/17 14:10 12/10/17 16:20 White Blood Count 8.9 TH/MM3 Red Blood Count 6.24 MIL/MM3 Hemoglobin 16.0 GM/DL Hematocrit 48.4 % Mean Corpuscular Volume 77.5 FL Mean Corpuscular Hemoglobin 25.6 PG Mean Corpuscular Hemoglobin Concent 33.1 % Red Cell Distribution Width 15.0 % Platelet Count 318 TH/MM3 Mean Platelet Volume 8.4 FL Neutrophils (%) (Auto) 77.9 % Lymphocytes (%) (Auto) 10.9 % Monocytes (%) (Auto) 11.0 % Eosinophils (%) (Auto) 0.0 % Basophils (%) (Auto) 0.2 % Neutrophils # (Auto) 6.9 TH/MM3 Lymphocytes # (Auto) 1.0 TH/MM3 Monocytes # (Auto) 1.0 TH/MM3 Eosinophils # (Auto) 0.0 TH/MM3 Basophils # (Auto) 0.0 TH/MM3 CBC Comment DIFF FINAL Differential Comment Blood Urea Nitrogen 13 MG/DL Creatinine 1.16 MG/DL Random Glucose 91 MG/DL Total Protein 9.2 GM/DL Albumin 4.3 GM/DL Calcium Level 9.4 MG/DL Alkaline Phosphatase 74 U/L Aspartate Amino Transf (AST/SGOT) 45 U/L Alanine Aminotransferase (ALT/SGPT) 48 U/L Total Bilirubin 1.0 MG/DL Sodium Level 132 MEQ/L Potassium Level 4.7 MEQ/L Chloride Level 98 MEQ/L Carbon Dioxide Level 22.3 MEQ/L Anion Gap 12 MEQ/L Estimat Glomerular Filtration Rate 93 ML/MIN Lipase 13 U/L Lactic Acid Level 2.0 mmol/L Urine Color LIGHT-YELLOW Urine Turbidity CLEAR Urine pH 6.5 Urine Specific [place] 1.021 Urine Protein NEG mg/dL Urine Glucose (UA) NEG mg/dL Urine Ketones 10 mg/dL Urine Occult Blood TRACE Urine Nitrite NEG Urine Bilirubin NEG Urine Urobilinogen LESS THAN 2.0 MG/DL Urine Leukocyte Esterase NEG Urine RBC LESS THAN 1 /hpf Urine WBC 2 /hpf Microscopic Urinalysis Comment CULT NOT INDICATED MDM Medical Decision Making Medical Screen Exam Complete: Yes Emergency Medical Condition: Yes Medical Record Reviewed: Yes Differential Diagnosis Acute gastritis. Nausea vomiting. Viral syndrome. Narrative Course Patient is medically stable at time of exam. Labs ordered including CBC, CMP, lipase, lactic acid, urinalysis. IV access is obtained the patient is given 2 L normal saline bolus. Patient is given 20 mg Reglan IM. Patient is given 4 mg Zofran IV and 20 mg Pepcid IV. CBC is unremarkable. CMP shows sodium 132, AST is 45, total protein is 9.2, and lipase is 13. Lactic acid is normal at 2.0 Urinalysis is unremarkable. Patient was given Phenergan 25 mg IM as well as 30 mg Toradol. Patient is felt stable for discharge as his labs are all unremarkable and CT scan is negative per radiologist. Patient is given prescription for ibuprofen 600 mg 4 times daily #40 Patient is given Phenergan 25 mg every 6 hours as needed #20 Patient is to rest, push fluids, and [facility] Diagnosis Primary Impression: Nausea and vomiting in adult patient Referrals: [facility] [place] Patient Instructions: Acute Nausea and Vomiting (ED), General Instructions Departure Forms: Work Release Enter return to work date: Dec 12, 2017 Additional Instructions: CBC is unremarkable. CMP shows sodium 132, AST is 45, total protein is 9.2, and lipase is 13. Lactic acid is normal at 2.0 Urinalysis is unremarkable. Patient was given Phenergan 25 mg IM as well as 30 mg Toradol. Patient is felt stable for discharge as his labs are all unremarkable and CT scan is negative per radiologist. Patient is given prescription for ibuprofen 600 mg 4 times daily #40 Patient is given Phenergan 25 mg every 6 hours as needed #20 Patient is to rest, push fluids, and [facility] Med/Other Pt SpecificInfo: Prescription(s) given Scripts No Active Prescriptions or Reported Meds Disposition: 01 DISCHARGE HOME Condition: Stable Stepan Mcknena Dec 10, 2017 14:15
[2017-12-10 14:29] LABS: AUTOMATED NEUTROPHIL # 6.9 TH/MM3 (1.8-7.7); BASOPHIL % 0.2 % (0.0-2.0); HEMATOCRIT 48.4 % (39.0-51.0); LYMPH % 10.9 % (9.0-44.0); MEAN CELL VOLUME 77.5 FL (80.0-100.0); MEAN CORPUSCULAR HEMOGLOBIN 25.6 PG (27.0-34.0); MEAN CORPUSCULAR HGB CONC 33.1 % (32.0-36.0); MEAN PLATELET VOLUME 8.4 FL (7.0-11.0); NEUT % 77.9 % (16.0-70.0); PLATELET COUNT 318 TH/MM3 (150-450); RED BLOOD COUNT 6.24 MIL/MM3 (4.50-5.90); WHITE BLOOD COUNT 8.9 TH/MM3 (4.0-11.0)
[2017-12-10] MEDS ORDERED: PROMETHAZINE INJ 25 MG/ML VIAL IM ONE (15:15)
[2017-12-10] MEDS ORDERED: KETOROLAC TROMETHAMINE 30 MG/ML (IVP) VIAL IV PUSH ONE (15:15)
[2017-12-10 15:20] LABS: ALBUMIN 4.3 GM/DL (3.4-5.0); ALKALINE PHOSPHATASE 74 U/L (45-117); ALT (GPT) 48 U/L (12-78); AST (GOT) 45 U/L (15-37); BICARBONATE 22.3 MEQ/L (21.0-32.0); BLOOD UREA NITROGEN 13 MG/DL (7-18); CALCIUM 9.4 MG/DL (8.5-10.1); CHLORIDE 98 MEQ/L (98-107); CREATININE 1.16 MG/DL (0.60-1.30); GLOMERULAR FILTRATION RATE 93 ML/MIN (>89); GLUCOSE,RANDOM 91 MG/DL (74-106); SODIUM (NA) 132 MEQ/L (136-145); TOTAL PROTEIN 9.2 GM/DL (6.4-8.2)
--- NOTE | 2017-12-10 16:33 | RADRPT ---
EXAM DATE/TIME: 12/10/2017 16:03 [place] COMPARISON: CT ABDOMEN & PELVIS W CONTRAST, October 25, 2017, 19:16. INDICATIONS : Lower abdomen pain,vomiting IV CONTRAST: 96 cc Omnipaque 350 (iohexol) IV ORAL CONTRAST: No oral contrast ingested. RADIATION DOSE: 9.10 CTDIvol (mGy) MEDICAL HISTORY : None SURGICAL HISTORY : Appendectomy. ENCOUNTER: Initial ACUITY: 1 day PAIN SCALE: 6/10 LOCATION: Abdomen TECHNIQUE: Volumetric scanning of the abdomen and pelvis was performed. Using automated exposure control and ad justment of the mA and/or kV according to patient size, radiation dose was kept as low as reasonably achievable to obtain optimal diagnostic quality images. DICOM format image data is available electro nically for review and comparison. FINDINGS: LOWER LUNGS: The visualized lower lungs are clear. LIVER: Homogeneous density without lesion. There is no dilation of the biliary tree. No calcified gallston es. SPLEEN: Normal size without lesion. PANCREAS: Within normal limits. KIDNEYS: Normal in size and shape. There is no mass, stone or hydronephrosis. ADRENAL GLANDS: Within normal limits. VASCULAR: There is no aortic aneurysm. BOWEL/MESENTERY: The stomach, small bowel, and colon demonstrate no acute abnormality. There is no free intraperitone al air or fluid. The patient is post appendectomy. ABDOMINAL WALL: Within normal limits. RETROPERITONEUM: There is no lymphadenopathy. BLADDER: No wall thickening or mass. REPRODUCTIVE: Within normal limits. INGUINAL: There is no lymphadenopathy or hernia. MUSCULOSKELETAL: Within normal limits for patient age. CONCLUSION: 1. Negative CT scan of the abdomen and pelvis. 2. The patient is post appendectomy. Chip Freeman MD on December 10, 2017 at 16:27 Board Certified Radiologist. This report was verified electronically.
[2017-12-10 16:59] LABS: BILIRUBIN, URINE NEG (NEG); BLOOD, URINE TRACE (NEG); GLUCOSE,URINE NEG (NEG); KETONE, URINE 10 mg/dL (NEG); NITRITE,URINE NEG (NEG); PH, URINE 6.5 (5.0-8.5); URINE COLOR LIGHT-YELLOW (YELLW/STRAW); URINE LEUKOCYTE ESTERASE NEG (NEG)
[2017-12-10] MEDS ORDERED: PROM25TA10 PO (17:09)
[2017-12-10] MEDS ORDERED: IBUP-232 PO (17:09)
[2017-12-10 17:25] VITALS: BP 125/59
== END 2017-12-10 17:35 | disposition home or self-care (01) ==
LOC: NEPD 12:33
DX: R11.2 Nausea with vomiting, unspecified (principal); F41.9 Anxiety disorder, unspecified; F32.9 Major depressive disorder, single episode, unspecified; Z90.49 Acquired absence of other specified parts of digestive tract
CPT/HCPCS: 74177; 80053; 81001; 83605; 83690; 85025; 96361; 96372; 96374; 96375; 99284; J0500; J1885; J2270; J2405; J2550; J7030; Q9967